=== PATIENT | male | born 1985 | race Caucasian/White ===

== ENCOUNTER 2018-03-07 00:38 | Emergency (ER) | payer OTHER ==
[~2018-03-07] VITALS: Ht 170.2 cm; Wt 81.7 kg
[~2018-03-07 00:38] MED LIST: AUGMENTIN 875-1 EACH PO; CEPHALEXIN500 MG PO; NORCO 5-325 TA1 EACH PO; PRILOSEC OTC20 MG PO; SULFACETAMIDE3.5 GM OPTH; TRAMADOL HCL50 MG PO; TUMS300 MG PO; VICODIN 5-5001 EACH PO; ZOFRAN ODT4 MG SL; ZOFRAN ODT8 MG SL
[2018-03-07] MEDS ORDERED: NORCO 5-325 TA1 EACH PO (01:12)
[2018-03-07] MEDS ORDERED: AMOXICILLIN500 MG PO (01:12)
[2018-03-07] MEDS ORDERED: AUGMENTIN 875-1 EACH PO (12:40)
== END 2018-03-07 01:18 | disposition home or self-care (01) ==
LOC: ED 00:38
DX: J02.0 Streptococcal pharyngitis (principal); F17.200 Nicotine dependence, unspecified, uncomplicated
CPT/HCPCS: 87880; 99283

== ENCOUNTER 2020-04-20 08:57 | Emergency (ER) | payer OTHER ==
[~2020-04-20] VITALS: Ht 180.3 cm; Wt 88.9 kg
--- OUTSIDE RECORDS SUMMARY | ~2020-04-20 | XMS | Encounter Summary ---
Demographics + + + | Address | [address] | | | [place] [address] | + + + | Home Phone | | + + + | Preferred Language | Unknown | + + + | Marital Status | Single | + + + | Jew Affiliation | Unknown | + + + | Race | Unknown | + + + | Ethnic Group | Unknown | + + + Author + + + | Author | [facility] | | | and [place] | + + + | Organization | [facility] | | | and [place] | + + + | Address | Unknown | + + + | Phone | Unavailable | + + + Support + + +---------+ + | Name | Relationship | Address | Phone | + + +---------+ + | Cherie Guerrero | ECON | Unknown | | + + +---------+ + Care Team Providers + +------+ + | Care Operations Representative Name | Role | Phone | + +------+ + PCP | Unavailable | + +------+ + Encounter Details +--------+ + + + + | Date | Type | Department | Care Team | Description | +--------+ + + + + | 01/30/ | Hospital | [facility] | Ty Thompson, | | | 2006 - | Encounter | MED CTR MED ONC | MD [address] | | | | | [address] | [place] | | | 01/31/ | | [place] [address] | [address] | | | 2006 | | [phone] | | | +--------+ + + + + Social History + +-------+ +--------+------+ | Tobacco Use | Types | Packs/Day | Years | Date | | | | | Used | | + +-------+ +--------+------+ | Never Assessed | | | | | + +-------+ +--------+------+ + + + | Sex Assigned at | Date Recorded | | | | + + + | Not on file | | + + + documented as of this encounter Plan of Treatment Not on filedocumented as of this encounter Visit Diagnoses Not on filedocumented in this encounter"
--- OUTSIDE RECORDS SUMMARY | ~2020-04-20 | XMS | Encounter Summary ---
Demographics + + + | Address | [address] | | | [place] [address] | + + + | Home Phone | | + + + | Preferred Language | Unknown | + + + | Marital Status | Single | + + + | Oriental Orthodox Affiliation | Unknown | + + + | Race | Unknown | + + + | Ethnic Group | Unknown | + + + Author + + + | Author | [facility] | | | and [place] | + + + | Organization | [facility] | | | and [...] Team Providers + +------+ + | Care Rigging Worker Name | Role | Phone | + +------+ + PCP | Unavailable | + +------+ + Encounter Details +--------+ + + + + | Date | Type | Department | Care Team | Description | +--------+ + + + + | 01/28/ | Hospital | [facility] | | | | 2006 | Encounter | MED CTR EMERGENCY | | | | | | CENTER [address] | | | | | | [place] | | | | | | [address] | | | | | | [phone] | | | +--------+ + + + [...]
--- OUTSIDE RECORDS SUMMARY | ~2020-04-20 | XMS | Encounter Summary ---
Demographics + + + | Address | [address] | | | [place] [address] | + + + | Home Phone | | + + + | Preferred Language | Unknown | + + + | Marital Status | Single | + + + | Jain Affiliation | Unknown | + + + | Race | Unknown | + + + | Ethnic Group | Unknown | + + + Author + + + | Author | [facility] | | | and [place] | + + + | Organization | [facility] | | | and [place]ana [...] Team Providers + +------+ + | Care Cash Teller Name | Role | Phone | + +------+ + | Unknown, Doctor | PCP | | + +------+ + Reason for Visit + + + | Reason | Comments | + + + | Skin Problem | | + + + Encounter Details +--------+ + + + + | Date | Type | Department | Care Team | Description | +--------+ + + + + | 02/22/ | Emergency | [facility] | Alphonse Curtis, | Insect bites | | 2016 | | MED CTR EMERGENCY | MD [address] | (Primary Dx) | | | | CENTER [address] | [place] | | | | | [place] | [address] | | | | | [address] | | | | | | [phone] | | | +--------+ + + + + Social History + +-------+ +--------+------+ | Tobacco Use | Types | Packs/Day | Years | Date | | | | | Used | | + +-------+ +--------+------+ | Current Some Day | | | | | | Smoker | | | | | + +-------+ +--------+------+ + +---+---+---+ | Smokeless Tobacco: | | | | | Never Used | | | | + +---+---+---+ + + +---------+ + | Alcohol Use | Drinks/Week | oz/Week | Comments | + + +---------+ + | Yes | | | occasionally | + + +---------+ + + + + | Sex Assigned at | Date Recorded | | | | + + + | Not on file | | + + + documented as of this encounter Last Filed Vital Signs + + + + + | Vital Sign | Reading | Time Taken | Comments | + + + + + | Blood Pressure | 138/91 | 02/23/2016 5:58 PM | | | | | PDT | | + + + + + | Pulse | 70 | 02/23/2016 5:58 PM | | | | | PDT | | + + + + + | Temperature | 37.4 C (99.3 F) | 02/23/2016 5:58 PM | | | | | PDT | | + + + + + | Respiratory Rate | 16 | 02/23/2016 5:58 PM | | | | | PDT | | + + + + + | Oxygen Saturation | 96% | 02/23/2016 5:58 PM | | | | | PDT | | + + + + + | Inhaled Oxygen | - | - | | | Concentration | | | | + + + + + | Weight | 83.9 kg (185 lb) | 02/23/2016 5:58 PM | | | | | PDT | | + + + + + | Height | 175.3 cm (5' 9") | 02/23/2016 5:58 PM | | | | | PDT | | + + + + + | Body Mass Index | 27.32 | 02/23/2016 5:58 PM | | | | | PDT | | + + + + + documented in this encounter Discharge Instructions AttachmentsThe following attachments cannot be sent through Care Everywhere.INSECT BITE (EN GLISH)documented in this encounter ED Notes Alphonse Curtis MD - 02/23/2016 6:13 PM PDTFormatting of this note might be different fro m the original. eMERGENCY dEPARTMENT eNCOUnter CHIEF COMPLAINT Chief Complaint Patient presents with Skin Problem HPI Juan Francisco Ruiz is a 30 y.o. male who presents for a second opinion on multiple bug bites. He states he was bitten several times with some sort of insect as he woke up with a red bite s on his arms and neck and chest. Several of them swelled up quite large and were very itch y. He went to [facility] ER last night and was given Benadryl and steroids. He woke up this morning and had more of insulin back to [facility] ER where he was given IV antibiot ics pain medications antihistamines doxycycline and prednisone. Tonight it looked like it w as a little bit worse so he came up here for a second opinion. He's had no fever, cough, sh ortness of breath, or other associated symptoms. PAST MEDICAL HISTORY Past Medical History Diagnosis Date Hiatal hernia Irritable bowel syndrome (IBS) Diverticulosis SURGICAL HISTORY Past Surgical History Procedure Laterality Date Cholecystectomy Knee surgery Right CURRENT MEDICATIONS Previous Medications No medications on file ALLERGIES No Known Allergies FAMILY HISTORY No family history on file. SOCIAL HISTORY History Social History Marital Status: N/A Spouse Name: N/A Number of Children: N/A Years of Education: N/A Social History Main Topics Smoking status: Current Some Day Smoker Smokeless tobacco: Never Used Alcohol Use: Yes Comment: occasionally Drug Use: Yes Special: Marijuana Sexual Activity: Not on file Other Topics Concern None Social History Narrative None REVIEW OF SYSTEMS All systems reviewed and negative except as noted on HPI and/or limited by patient conditio n PHYSICAL EXAM VITAL SIGNS: Temp: 37.4 C (99.3 F) Pulse: 70 Resp: 16 SpO2: 96 % BP: (!) 138/91 mmHg Constitutional: Well developed, Well nourished, No acute distress, Non-toxic appearance. HENT: Normocephalic, Atraumatic, Oropharynx moist, No oral exudates, Nose normal. Neck- No rmal range of motion, No tenderness, Supple, No stridor. Eyes: PERRL, EOMI, Conjunctiva normal, No discharge. Respiratory: Normal breath sounds, No respiratory distress, No wheezing, No chest tenderne ss. Cardiovascular: Normal S1, S2 GI: nondistended nontender : not done Musculoskeletal: Intact distal pulses, No edema ,Integument: Warm, Dry, No erythema, multiple splotchy erythematous lesions On right bicep , on his throat, chest, and multiple smaller. The insect bites over both legs EKG Not done RADIOLOGY No results found. Medications Administered None ED COURSE & MEDICAL DECISION MAKING Last Set of Vital Signs: Temp: 37.4 C (99.3 F) Pulse: 70 Resp: 16 SpO2: 96 % BP: (!) 13 8/91 mmHg Pertinent Labs, Nurses Note, & Imaging studies reviewed. (See chart for details) This is a 30-year-old male with multiple insect bites with some localized reaction to the o ne on his right bicep. He is artery on antihistamines and steroids as well as antibiotics. I advised him just to continue them at this point and to return if worse. I suspect these are more allergic than infectious. He is comfortable with this plan. FINAL IMPRESSION Insect bites LABS FROM THIS VISIT OR MOST RECENT ER VISIT: No results found for this or any previous visit. Alphonse Curtis MD 02/23/16 1816 document ed in this encounter Miscellaneous Notes ED Triage Notes - Tahmina Mathur RN - 02/23/2016 5:56 PM PDTPatient reports he may have been bitten by insect yesterday and that he has had redness, warmth, and swelling on h is right arm. He states he went to [facility] ED last night and was given benadryl for all ergic reaction. He states the area of redness grew overnight, so he went back to the [facility] ED this morning. He states this morning he was given IV antibiotics and pain medicati ons and was prescribed hydroxyzine, doxycycline, and prednisone, which he has been taking. Pt reports that his right arm has continued to worsen today, which is why he came to this ED now. documented in this encounter Plan of Treatment Not on filedocumented as of this encounter Visit Diagnoses + + | Diagnosis | + + | Insect bites - Primary Other, multiple, and unspecified sites, insect bite, | | nonvenomous, without mention of infection | + + documented in this encounter
--- OUTSIDE RECORDS SUMMARY | ~2020-04-20 | XMS | Clinical Summary ---
Demographics + + + | Address | [address] | | | [place] [address] | + + + | Home Phone | | + + + | Preferred Language | Unknown | + + + | Marital Status | Single | + + + | Nondenominational Affiliation | Unknown | + + + | Race | Unknown | + + + | Ethnic Group | Unknown | + + + Author + + + | Author | [facility] | | | and [place] | + + + | Organization | [facility] | | | and [...] Team Providers + +------+ + | Care [employer]ship Name | Role | Phone | + +------+ + | Unknown, Doctor | PCP | | + +------+ + Allergies No Known Allergies Medications No known medications Active Problems Not on file Social History + +-------+ +--------+------+ | Tobacco [...] on file | | + + + Last Filed Vital Signs + + + [...] | | + + + + + Plan of Treatment + + +-------+ + | Health Maintenance | Due Date | Last | Comments | | | | Done | | + + +-------+ + | Vaccine: | | | | | Dtap/Tdap/Td (1 - | 2 | | | | Tdap) | | | | + + +-------+ + | Vaccine: Influenza | | | | | (#1) | 0 | | | + + +-------+ + Results Not on filefrom Last 3 Months Insurance + +--------+ +--------+ +---------+--------+ | Payer | Benefi | Subscriber | Effect | Phone | Address | Type | | | t Plan | ID | blanca | | | | | | / | | Dates | | | | | | Group | | | | | | + +--------+ +--------+ +---------+--------+ | [employer] | [employer] | [id number] | | [phone] | | Medica | | MEDICAID HMO | HEALTH | | [id number]-Pr | 1 | | id | | | MDCD | | esent | | | | | | HMO [place] | | | | | | + +--------+ +--------+ +---------+--------+ + +--------+ +--------+ + + | Guarantor Name | Accoun | Relation to | Date | Phone | Billing Address | | | t Type | Patient | of | | | | | | | | | | + +--------+ +--------+ + + | Juan Francisco Ruiz | Person | Self [birth year] | [address] | | | al/Fam | | 1985 | [phone] | [place] [address] | | | nithya | | | 1 (Home) | | + +--------+ +--------+ + + Advance Directives + + + + + | Type | Date Recorded | Patient | Explanation | | | | Production Proofreader | | + + + + + | Power of | | | | | Wig Dresser | | | | + + + + + | Advance | | | | | Directive | | | | + + + + +
[~2020-04-20 08:57] MED LIST changes: +AMOXICILLIN500 MG PO; +FAMCICLOVIR500 MG PO; +IBUPROFEN200 M1 PO; +NORCO 7.5-3251 EACH PO; +ONDANSETRON ODT8 MG PO
[2020-04-20] MEDS ORDERED: IMITREX50 MG PO (11:19)
== END 2020-04-20 12:46 | disposition home or self-care (01) ==
LOC: ED 08:57
DX: G43.009 Migraine without aura, not intractable, without status migrainosus (principal); Z87.891 Personal history of nicotine dependence
CPT/HCPCS: 70450; 96372; 99284-25; J3030

== ENCOUNTER 2021-07-03 03:59 | Emergency (ER) | payer OTHER ==
[~2021-07-03] VITALS: Ht 180.3 cm; Wt 90.1 kg
[~2021-07-03 03:59] MED LIST changes: +IMITREX50 MG PO
[2021-07-03] MEDS ORDERED: DICYCLOMINE HCL20 MG PO (06:48)
--- NOTE | 2021-07-04 13:41 | EKG ---
[facility] [address] [place], [place] [address] Signed Normal sinus rhythm Rightward axis Borderline ECG No previous ECGs available Confirmed by PRABHJOT GIORDANO MD ([id number]) on 07/04/2021 1:40:55 PM Electronically Signed By: PRABHJOT GIORDANO MD 07/04/21 1341 PATIENT NAME: JOSH MEDRANO Electrocardiogram DATE OF : 81 PHYSICIAN: PRABHJOT GIORDANO MD REPORT #: [id number] REPORT IS CONFIDENTIAL AND NOT TO BE RELEASED WITHOUT AUTHORIZATION
== END 2021-07-03 07:02 | disposition home or self-care (01) ==
LOC: ED 03:59
DX: K52.9 Noninfective gastroenteritis and colitis, unspecified (principal); Z87.891 Personal history of nicotine dependence
CPT/HCPCS: 74177; 80053; 81001; 83690; 83735; 85025; 93005; 93010; 96375; 96376; 99284-25; A9270; C9113; J1170; J2405; J3010; J7030; Q9967

== ENCOUNTER 2021-08-16 12:04 | Inpatient (IN) | payer OTHER ==
[~2021-08-16] VITALS: Ht 180.3 cm; Wt 89.3 kg
[~2021-08-16 12:04] MED LIST changes: +DICYCLOMINE HCL20 MG PO
[2021-08-17] MEDS ORDERED: CENTRUM COMPLE1 EACH PO (10:26)
[2021-08-18] MEDS ORDERED: OXYCODONE HCL5 MG PO (11:24)
[2021-08-18] MEDS ORDERED: ACETAMINOPHEN500 MG PO (11:24)
[2021-08-18] MEDS ORDERED: IBUPROFEN200 MG PO (11:25)
[2021-08-18] MEDS ORDERED: ONDANSETRON ODT4 MG SL (11:26)
[2021-08-18] MEDS ORDERED: AUGMENTIN 875-1 EACH PO (11:26)
== END 2021-08-18 12:40 | disposition home or self-care (01) | DRG 392 ==
LOC: ED 12:04 → MS 15:52
PROVIDERS: ADMIT Internal Medicine; ATTEND Internal Medicine
DX: K57.32 Diverticulitis of large intestine without perforation or abscess without bleeding (principal); K21.9 Gastro-esophageal reflux disease without esophagitis; E78.5 Hyperlipidemia, unspecified; K44.9 Diaphragmatic hernia without obstruction or gangrene; K58.0 Irritable bowel syndrome with diarrhea; Z90.49 Acquired absence of other specified parts of digestive tract; Z79.899 Other long term (current) drug therapy; Z20.822 Contact with and (suspected) exposure to COVID-19
CPT/HCPCS: 74177; 80048; 81001; 85025; C9803; J0295; J1170; J1650; J1885; J2405; J2543; J7121; Q0177; Q9967; U0003

== ENCOUNTER 2021-11-26 18:51 | Emergency (ER) | payer OTHER ==
[~2021-11-26] VITALS: Ht 175.3 cm; Wt 92.9 kg
[~2021-11-26 18:51] MED LIST changes: +ACETAMINOPHEN500 MG PO; +CENTRUM COMPLE1 EACH PO; +IBUPROFEN200 MG PO; +ONDANSETRON ODT4 MG SL; +OXYCODONE HCL5 MG PO
[2021-11-26] MEDS ORDERED: LOMOTIL TABLET1 EACH PO (21:05)
[2021-11-26] MEDS ORDERED: ONDANSETRON ODT8 MG PO (21:05)
== END 2021-11-26 21:50 | disposition home or self-care (01) ==
LOC: ED 18:51
DX: K52.9 Noninfective gastroenteritis and colitis, unspecified (principal); Z87.891 Personal history of nicotine dependence; Z79.899 Other long term (current) drug therapy
CPT/HCPCS: 36415; 74018; 80048; 81001; 83690; 85025; 96374; 96375; 99284-25; C9803; J1790; J1885; J7030; U0003

== ENCOUNTER 2021-12-08 07:05 | Day surgery (SDC) | payer OTHER ==
[~2021-12-08] VITALS: Ht 175.3 cm; Wt 93.0 kg
[~2021-12-08 07:05] MED LIST changes: +LOMOTIL TABLET1 EACH PO
--- NOTE | 2021-12-08 08:46 | NUR ---
12/08/21 0846 Petrona Ward 0822 PATIENT ARRIVES TO PACU SLEEPING. AWAKENS WITH VERBAL STIMULI. RESP EVEN AND UNLABORED, NC AT 2 LITERS.
--- NOTE | 2021-12-08 10:48 | NUR ---
PT ALERT, ORIENTED AND HAS HAD PREVIOUS SCOPES. ALL QUESTIONS ASKED ANSWERED. PT HAS RIDE ARRANGED. GAVE ENCOURAGEMENT AND BLESSING, WILL FOLLOW
--- NOTE | 2021-12-08 11:07 | OR ---
[facility] [address] [place], [place] [address] Signed DATE OF OPERATION: 12/08/2021 SURGEON: Gladys Heard MD PREOPERATIVE DIAGNOSES: 1. Intermittent rectal bleeding. 2. Diverticulosis. 3. Diverticulitis in 2019. 4. Paternal grandfather with Crohn disease. 5. Internal hemorrhoids requiring incision and drainage as well as the PPH hemorrhoidopexy in 2011. 6. History of posterior midline anal fissure, now healed. POSTOPERATIVE DIAGNOSES: 1. Minimal internal hemorrhoids. 2. Minimal to moderate left-sided diverticulosis. PROCEDURE: Colonoscopy biopsy. ESTIMATED BLOOD LOSS: None. INDICATIONS: Josh is a 36-year-old gentleman I have actually known for quite some time. He has been having intermittent rectal bleeding going back to when he was a child. He remembers several colonoscopies over the years. As far back as 2006, he had upper and lower endoscopy with Dr. Bro. He was said to have a hiatal hernia with gastritis and very early diverticulosis. Biopsies from the colon were negative. He had done well with Versed and fentanyl at that time. He then had his gallbladder out in [address] Louie. We know his paternal grandfather had Crohn disease and probably of Crohn disease in his 60s. I had helped Josh with a colonoscopy in 2010. His biopsies were negative. He had internal hemorrhoids. He has had incision and drainage of a thrombosed hemorrhoid in the past. Again, he did well with Versed and fentanyl. We helped him with the PPH hemorrhoidopexy in 2011. This has gone well for him. A year later, he was very constipated and developed an acute posterior midline anal fissure. That healed with his diltiazem ointment. He continues with daily alcohol and marijuana. 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 He has had various abdominal complaints over the years and ends up in the emergency room. Often it is on the right Electronically Signed By: GLADYS HEARD MD 12/08/21 1107 PATIENT NAME: JOSH MEDRANO OPERATIVE REPORT DATE OF : 81 REPORT #: [id number] PHYSICIAN: GLADYS HEARD MD PCP: RAMONITA TOBIN MD REPORT IS CONFIDENTIAL AND NOT TO BE RELEASED WITHOUT AUTHORIZATION [facility] [address] [place] [address] Signed side. As a result, he always gets a CT scan. We know the sigmoid colon crosses over to his right side of his pelvis and then back to his rectum. He has never been told he has had diverticulitis in the past. On this occasion, he went to the emergency room just before in 2020. The pain was on the left side. Where the descending colon joins his sigmoid colon, he did have some inflammation consistent with diverticulitis. He spent three days on our hospitalist service with Jovana. He was discharged to home on p.o. antibiotics for one week. He said he resolved very nicely. His primary care provider then asked that he come and have another colonoscopy. He has no family history of colon cancer or polyps. Overall, he is feeling much better. In the office, I gave Josh a pamphlet on colonoscopy. He recalls the test quite well. There is risk including, but not limited to gas bloating, crampy abdominal pain, bleeding, perforation requiring surgery, and missed diagnosis. He has always done well with Versed and fentanyl in the past. He had expressed understanding and wished to proceed. PROCEDURE NOTE: Josh was taken into our endoscopy suite and placed in the left lateral decubitus position. He was given a total of 10 mg of Versed and 200 mcg of fentanyl. He was frequently awake and raising his head and talking to us. He was uncomfortable throughout much of that case. We actually called our anesthesia provider from home. However, we finally made it to the cecum. We therefore canceled the monitored anesthesia care on this occasion. However, in the future he would be much better served with propofol infusion. We could see the ileocecal valve and the appendiceal orifice. We withdrew the scope slowly. We took pictures throughout for photodocumentation. He does have diverticula in the left and sigmoid colon. They are moderate in size, minimal to moderate in number, and scattered about. We saw no inflammatory changes on this occasion. There were no polyps. The rectum was unremarkable. Upon retroflexion of the scope, we can see his circular PPH staple line at the level of the anus. Very minimal internal hemorrhoid tissue at this point. On digital rectal exam, we can feel that staple line and we can see that he has excellent sphincter tone. After this, the gas had been suctioned out and the colonoscope removed. Overall, Josh did well. RECOMMENDATIONS: Josh can follow up in my office in 10 years for repeat colonoscopy. He can add fiber to his diet for the diverticulosis. He really should have monitored anesthesia care in the future with propofol for his own comfort and safety. Gladys Heard MD Electronically Signed By: GLADYS HEARD MD 12/08/21 1107 PATIENT NAME: JOSH MEDRANO OPERATIVE REPORT DATE OF : [birth year] REPORT #: [id number] PHYSICIAN: GLADYS HEARD MD PCP: RAMONITA TOBIN MD REPORT IS CONFIDENTIAL AND NOT TO BE RELEASED WITHOUT AUTHORIZATION [address] [place], [place] [address] Signed ALB/MODL /[id number] cc: MD Ramonita Brenner MD Copies: GLADYS HEARD MD, JAMES MD ~ Electronically Signed By: GLADYS HEARD MD 12/08/21 1107 PATIENT NAME: JOSH MEDRANO OPERATIVE REPORT DATE OF : [birth year] REPORT #: [id number] PHYSICIAN: GLADYS HEARD MD PCP: RAMONITA TOBIN MD REPORT IS CONFIDENTIAL AND NOT TO BE RELEASED WITHOUT AUTHORIZATION
== END 2021-12-08 10:35 | disposition home or self-care (01) ==
LOC: OPS 07:05 → DS 07:05 → OPS 08:15
PROVIDERS: ATTEND Colon & Rectal Surgery
DX: K57.30 Diverticulosis of large intestine without perforation or abscess without bleeding (principal); K64.0 First degree hemorrhoids; K21.9 Gastro-esophageal reflux disease without esophagitis; F17.210 Nicotine dependence, cigarettes, uncomplicated; Z79.899 Other long term (current) drug therapy; Z20.822 Contact with and (suspected) exposure to COVID-19
CPT/HCPCS: 99153; G0500; J2250; J3010; J7121

== ENCOUNTER 2022-11-27 08:14 | Emergency (ER) | payer OTHER ==
[~2022-11-27] VITALS: Ht 175.3 cm; Wt 93.4 kg
[2022-11-27] MEDS ORDERED: ONDANSETRON ODT8 MG PO (11:12)
[2022-11-28] MEDS ORDERED: HYDROCODON-ACE1 EA10 PO (04:27)
== END 2022-11-27 11:39 | disposition home or self-care (01) ==
LOC: ED 08:14
DX: K57.30 Diverticulosis of large intestine without perforation or abscess without bleeding (principal); N28.1 Cyst of kidney, acquired; Z87.891 Personal history of nicotine dependence; Z79.899 Other long term (current) drug therapy
CPT/HCPCS: 36415; 74177; 80053; 81003; 85025; 96375; 99284-25; J1170; J1790; J1885; J2405; J7030

== ENCOUNTER 2022-11-28 01:45 | Emergency (ER) | payer OTHER ==
[~2022-11-28] VITALS: Ht 175.3 cm; Wt 93.0 kg
--- OUTSIDE RECORDS SUMMARY | 2022-11-28 01:52 | XMS ---
PreManage Notification: JOSH MEDRANO Security [place] Events No recent Security Events currently on file CRITERIA MET - [facility] - 2 Visits in 30 Days CARE PROVIDERS -[place]- Dentist: Engineering Document Control Clerk [facility] Dental [facility] PHONE: [phone] SHMUEL PHILLIPS [facility] 03/07/2018-Current PHONE: [phone] Larry has no Care Guidelines for this patient. [place] VISIT COUNT (12 MO.) 2 [facility] TOTAL 2 NOTE: Visits indicate total known visits. ED/UCC VISIT TRACKING (12 MO.) 11/28/2022 01:46 [facility] [place] TYPE: Emergency COMPLAINT: - ABD PAIN 11/27/2022 08:14 STEVEN Hernaned[facility] [place] TYPE: Emergency COMPLAINT: - ABD PAIN INPATIENT VISIT TRACKING (12 MO.) No inpatient visits to display in this time frame [email or web address]
[2022-11-28] MEDS ORDERED: HYDROCODON-ACE1 EA10 PO (04:27)
== END 2022-11-28 04:48 | disposition home or self-care (01) ==
LOC: ED 01:45
DX: R10.32 Left lower quadrant pain (principal); Z87.891 Personal history of nicotine dependence; Z79.899 Other long term (current) drug therapy
CPT/HCPCS: 36415; 74177; 80053; 83690; 85025; 96375; 96376; 99284-25; A9270; J1170; J1885; J2405; Q9967

== ENCOUNTER 2022-11-30 19:22 | Emergency (ER) | payer OTHER ==
[~2022-11-30] VITALS: Ht 175.3 cm; Wt 92.0 kg
[~2022-11-30 19:22] MED LIST changes: +HYDROCODON-ACE1 EA10 PO
--- OUTSIDE RECORDS SUMMARY | 2022-11-30 19:30 | XMS ---
PreManage Notification: JOSH MEDRANO Security Community Support Specialist Events No recent Security Events currently on file CRITERIA MET - [facility] - 2 Visits in 30 Days CARE PROVIDERS -[place]- Dentist: Bail Agent [facility] PHONE: [phone] SHMUEL PHILLIPS [facility] 03/07/2018-Current PHONE: [phone] Larry has no Care Guidelines for this patient. [place] VISIT COUNT (12 MO.) 3 [facility] TOTAL 3 NOTE: Visits indicate total known visits. ED/UCC VISIT TRACKING (12 MO.) 11/30/2022 19:22 [facility] [place] TYPE: Emergency COMPLAINT: - ABDOMINAL PAIN 11/28/2022 01:46 STEVEN Hernandez [place] TYPE: Emergency COMPLAINT: - ABD PAIN DIAGNOSES: - Left lower quadrant pain - Other fpc (current) drug therapy - Personal history of nicotine dependence 11/27/2022 08:14 STEVEN Hernandez [place] TYPE: Emergency COMPLAINT: - ABD PAIN DIAGNOSES: - Left lower quadrant pain - Diverticulosis of large intestine without perforation or abscess without bleeding - Other fpc (current) drug therapy - Cyst of kidney, acquired - Personal history of nicotine dependence INPATIENT VISIT TRACKING (12 MO.) No inpatient visits to display in this time frame [email or web address]
[2022-11-30] MEDS ORDERED: DICYCLOMINE HCL10 MG PO (21:42)
== END 2022-11-30 22:09 | disposition home or self-care (01) ==
LOC: ED 19:22
DX: R10.32 Left lower quadrant pain (principal); Z87.891 Personal history of nicotine dependence; Z79.899 Other long term (current) drug therapy
CPT/HCPCS: 36415; 74018; 80053; 81001; 83690; 83735; 85025; 96374; 96375; 99284-25; J1170; J1885; J2405; J7121

== ENCOUNTER 2023-01-28 10:46 | Emergency (ER) | payer BC, OTHER ==
[~2023-01-28] VITALS: Ht 175.3 cm; Wt 90.4 kg
[~2023-01-28 10:46] MED LIST changes: +DICYCLOMINE HCL10 MG PO
[2023-01-28 12:55] VITALS: BP 124/80
== END 2023-01-28 12:55 | disposition home or self-care (01) ==
LOC: ED 10:46
DX: R19.7 Diarrhea, unspecified (principal); Z87.891 Personal history of nicotine dependence
CPT/HCPCS: 36415; 80053; 81003; 85025; 96374; 96375; 99284-25; J1885; J2405

== ENCOUNTER 2023-03-28 05:55 | Day surgery (SDC) | payer BC, OTHER ==
[2023-03-21 15:27] VITALS: BP 12/68
[~2023-03-28] VITALS: Ht 175.3 cm; Wt 90.9 kg
[2023-03-28 06:14] VITALS: BP 137/62
[2023-03-28] MEDS ORDERED: IBUPROFEN200 M1 PO (06:17)
--- NOTE | 2023-03-28 07:55 | NUR ---
RESTING IN BED. DENIED NEEDS. CONSENTED TO PRAYER. PRAYED FOR SUCCESSFUL PROCEDURE AND ONGOING HEALING.
--- NOTE | 2023-03-28 08:10 | NUR ---
03/28/23 0810 Ara Slaughter 0802 PT TO PACU SLEEPING, ORAL AIRWAY IN PLACE O2 AT 7L VIA MASK. FOGGING NOTING IN MASK.
[2023-03-28 08:36] VITALS: BP 117/76
--- NOTE | 2023-03-29 13:59 | OR ---
[facility] [address] [place], [place] [address] Signed DATE OF OPERATION: 03/28/2023 SURGEON: Gladys Heard MD PREOPERATIVE DIAGNOSES: 1. Chronic generalized abdominal pain. 2. Irritable bowel syndrome. 3. Moderate to large hiatal hernia. 4. Gastritis. 5. History of peptic ulcer disease. 6. Maternal grandfather with Crohn disease. 7. 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 POSTOPERATIVE DIAGNOSES: 1. Mild diffuse punctate hemorrhagic gastritis. 2. Small to moderate sized hiatal hernia (42-38 cm). 3. GE junction at 38 cm. PROCEDURE: EGD with CLOtest and biopsies of the duodenum, antrum and GE junction. ESTIMATED BLOOD LOSS: None. INDICATIONS: Josh is a -wdho-xvj gentleman, who has a rather extensive past medical history as detailed in the history of present illness of his history and physical. Essentially, he has chronic generalized abdominal pain associated with physical and emotional stress consistent with irritable bowel syndrome. He has been evaluated in the past and is known to have a [id number] hiatal hernia with some gastritis and peptic ulcer disease as far back as 2006. He has had trouble with his stomach issues clear back to when he was a young teenager. He has a paternal grandfather with Crohn disease. We know that a recent upper GI small-bowel follow-through demonstrated the hiatal hernia and a duodenal diverticulum. The radiologist is worried about some thickening to his duodenum given his family history of Crohn disease. He has been asked to see me for followup upper endoscopy. 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 He is now down to 2000 dollars a month. He said it has been tough to pay his bills. This caused him a lot of stress and it has exacerbated his abdominal symptoms. In the office, I gave him a pamphlet on upper endoscopy. He is familiar with the test. There is risk Electronically Signed By: GLADYS HEARD MD 03/28/23 1012 Electronically Signed By: GLADYS HEARD MD 03/30/23 0631 PATIENT NAME: JOSH MEDRANO OPERATIVE REPORT DATE OF : 81 REPORT #: [id number] PHYSICIAN: GLADYS HEARD MD PCP: RAMONITA TOBIN MD REPORT IS CONFIDENTIAL AND NOT TO BE RELEASED WITHOUT AUTHORIZATION [facility] [address] [place], [place] [address] Signed including, but not limited to gas bloating, crampy abdominal pain, bleeding, perforation requiring surgery and missed diagnosis. We also reviewed the need for monitored anesthesia care given his history of marijuana and alcohol use. We tried to use Versed and fentanyl in the past and it simply was not enough. We actually had to call an Anesthesia provider last time to add propofol for his endoscopy. He had expressed understanding and wished to proceed. PROCEDURE NOTE: Josh was taken into our endoscopy suite and placed in the supine semi-recumbent position. A bite block was utilized for the case. He was given propofol per our nurse wheelchair van driver. We had reviewed the small bowel follow-through. He appears to have a duodenal diverticulum and possibly some thickening to the duodenum. He is also seen to have his hiatal hernia. The adult gastroscope had been introduced and advanced under direct visualization without difficulty. We searched his duodenum very carefully and we were never able to see a duodenal diverticulum with our forward-viewing scope. However, that is not uncommon. The duodenal mucosa and the pyloric bulb really appeared quite healthy to us. He had normal-appearing clear green bile in the duodenum. It was easily suctioned out. We took a couple biopsies of the duodenum for pathologic review. In the stomach, he had some mild diffuse punctate hemorrhagic gastritis. We took biopsies of the antrum for CLOtest as well as pathologic review. We saw no ulcerations in the pyloric bulb or the antrum. Upon retroflexion of the scope, he does have a small hiatal hernia. We measured it roughly from 42 cm back to about 38 cm. He has very little disruption to the Z-line. There is no Yost's mucosa. There is no distal esophagitis. We went ahead and took a biopsy on the edge of the Z-line at 38 cm. The middle and upper esophagus were unremarkable. There were no gastric or esophageal varices. There were no strictures. After this, the gas was suctioned out and the gastroscope was removed. Josh tolerated the procedure quite well. RECOMMENDATIONS: I will see Josh back in my office in 7 to 14 days to review his results. Once again, it looks like he has a functional bowel disorder. Gladys Heard MD ALB/MODL /[id number] Electronically Signed By: GLADYS HEARD MD 03/28/23 1012 Electronically Signed By: GLADYS HEARD MD 03/30/23 0631 PATIENT NAME: JOSH MEDRANO OPERATIVE REPORT DATE OF : 81 REPORT #: [id number] PHYSICIAN: GLADYS HEARD MD PCP: RAMONITA TOBIN MD REPORT IS CONFIDENTIAL AND NOT TO BE RELEASED WITHOUT AUTHORIZATION [facility] [address] [place], [place] [address] Signed cc: Gladys Heard MD [facility] Copies: GLADYS HEARD MD ~ Electronically Signed By: GLADYS HEARD MD 03/28/23 1012 Electronically Signed By: GLADYS HEARD MD 03/30/23 0631 PATIENT NAME: JOSH MEDRANO OPERATIVE REPORT DATE OF : 81 REPORT #: [id number] PHYSICIAN: GLADYS HEARD MD PCP: RAMONITA TOBIN MD REPORT IS CONFIDENTIAL AND NOT TO BE RELEASED WITHOUT AUTHORIZATION
--- NOTE | 2023-03-30 13:16 | PATH ---
[facility] [address], [place] [address] Signed SPECIMEN(S): A DUODENAL BIOPSY SPECIMEN(S): B ANTRUM/PYLORUS BIOPSY SPECIMEN(S): C GE JUNCTION SPECIMEN SOURCE: A. DUODENAL BIOPSY B. ANTRUM/PYLORUS BIOPSY C. GE JUNCTION CLINICAL HISTORY: History of abdominal pain, GERD. Family history Crohn's disease. Post: Gastritis, small hiatal hernia. FINAL PATHOLOGIC DIAGNOSIS: A. Duodenal biopsy: - Benign duodenal mucosa, negative for specific diagnostic abnormality. B. Antrum / pylorus biopsy: - Benign gastric-type mucosa with focal slight chronic inflammation. - Negative for evidence of Helicobacter organisms on routine HE stained sections. C. Gastroesophageal junction, biopsy: - Benign esophageal mucosa, negative for increased epithelial eosinophils. - Scant glandular mucosa, negative for specialized intestinal metaplasia or dysplasia. JVR:[facility]:C2NR MICROSCOPIC EXAMINATION: Histologic sections of all submitted blocks are examined by light microscopy. These findings, together with the gross examination, support the pathologic diagnosis. GROSS DESCRIPTION: A. The specimen, labeled and designated "Joseph, duodenal biopsy," is received in formalin and consists of two greco soft tissue fragments, ranging from 0.4-0.6 cm. Entirely submitted in (A1). B. The specimen, labeled and designated "[place], antrum/pylorus biopsy," is received in formalin and consists of one greco soft tissue fragment, 0.5 cm. Entirely submitted in (B1). C. The specimen, labeled and designated "[place], GE junction biopsy," is received in formalin and consists of one greco soft tissue fragment, 0.5 cm. Entirely submitted in (C1). PATIENT NAME: JOSH MEDRANO PATHOLOGY DATE OF : 81 REPORT #: [id number] PHYSICIAN: YEVGENIY GONZÁLES PCP: RAMONITA TOBIN MD REPORT IS CONFIDENTIAL AND NOT TO BE RELEASED WITHOUT AUTHORIZATION [facility] [address], [place] [address] Signed VB (under the direct supervision of a pathologist) The Gross Description was prepared using a voice recognition system. The report was reviewed for accuracy; however, sound-alike word errors, addition and/or deletions may occur. If there is any question about this report, please contact Client Services. PERFORMING LABORATORY: Technical component was performed by [facility], [address] [place] [id number] (CLIA# [id number]). Professional interpretation was performed by [facility], [address] [place] [id number] (CLIA#: [id number]). Diagnostician: Grabiel Toussaint MD Pathologist Electronically Signed 03/29/2023 Copies: ~ PATIENT NAME: JOSH MEDRANO PATHOLOGY DATE OF : 81 REPORT #: [id number] PHYSICIAN: [facility] PCP: RAMONITA TOBIN MD REPORT IS CONFIDENTIAL AND NOT TO BE RELEASED WITHOUT AUTHORIZATION
== END 2023-03-28 08:45 | disposition home or self-care (01) ==
LOC: DS 05:55 → OPS 05:55 → DS 07:30 → OPS 07:30
PROVIDERS: ATTEND Colon & Rectal Surgery
PROC: 0DB68ZX Excision of Stomach, Via Natural or Artificial Opening Endoscopic, Diagnostic (ICD-10-PCS; 2023-03-28)
PROC: 0DB48ZX Excision of Esophagogastric Junction, Via Natural or Artificial Opening Endoscopic, Diagnostic (ICD-10-PCS; 2023-03-28)
PROC: 0DB98ZX Excision of Duodenum, Via Natural or Artificial Opening Endoscopic, Diagnostic (ICD-10-PCS; principal; 2023-03-28 07:30)
DX: R10.84 Generalized abdominal pain (principal); K29.51 Unspecified chronic gastritis with bleeding; K44.9 Diaphragmatic hernia without obstruction or gangrene; K21.9 Gastro-esophageal reflux disease without esophagitis; K57.90 Diverticulosis of intestine, part unspecified, without perforation or abscess without bleeding; K62.5 Hemorrhage of anus and rectum; K64.8 Other hemorrhoids; K58.9 Irritable bowel syndrome, unspecified; F12.10 Cannabis abuse, uncomplicated; E66.9 Obesity, unspecified; Z68.30 Body mass index [BMI] 30.0-30.9, adult; Z83.79 Family history of other diseases of the digestive system; Z87.19 Personal history of other diseases of the digestive system; Z87.11 Personal history of peptic ulcer disease; Z72.89 Other problems related to lifestyle; Z79.899 Other long term (current) drug therapy
CPT/HCPCS: 00731; 36415; 87077; J2704; J7121